=== PATIENT | male | born 1965 | race Caucasian/White ===

== ENCOUNTER 2018-01-05 06:40 | Inpatient (IN) | payer OTHER, SELFPAY ==
[2017-12-23 10:38] VITALS: BMI 33.0
[2018-01-05] VITALS (13 sets, daily range): BP systolic 114–150; BP diastolic 63–84; PULSE 55–88; RESP 10–18; TEMP 36.5–37.4; O2SAT 94–100; BMI 32.0
[2018-01-05] MEDS: LACTATED RINGERS 1,000 ML 42 ML IV ×2 (07:20→10:34)
--- NOTE | 2018-01-05 07:27 | PM.PREOP ---
Pre-operative Note Interval Note Pre-op Check: History & Physical Reviewed by Physician and Exam Performed
--- NOTE | 2018-01-05 07:34 | P.OP_ITS ---
Operative Date/Time/Diagnoses - Date of procedure: 01/05/18 Time of procedure: 10:56 Pre-op diagnosis: lumbar stenosis with radiculopathy lumbar spondylolisthesis Post-op diagnosis: same Procedure & Clinicians Procedure: L4-5 TLIF (post/post innerbody fusion) screws L4, L5 cage icbg L45 laminectomy including removal of facet cyst (intraspinal, extradural mass lesion) microscope placement of epidural catheter Same procedure as scheduled: Yes Indications: 52-year-old male with intractable radiculopathy and dynamic listhesis. He had failed conservative management requested operative intervention. Risks and benefits of surgery were discussed appropriate consents were obtained. Surgeon: Villa Escobedo Geospatial Analyst: Catrina Dorman Anesthesia Type: General Operative Notes Findings: large adherent facet cyst at L45 on the right Closure Type: primary Specimen(s): none sent Implants & Drains: NuVasive Reline MAS screws Integrity Flarehawk cage Applied: catheter Estimated Blood Loss (mL): 20 Procedure in detail: The patient was brought to the operating room and intubated on the table. A time-out was performed. They were then rolled over to the well-padded Dwayne table in the prone position. Preoperative antibiotics were given. The back was prepped and draped in the standard sterile fashion. Using fluoroscopy, a 4 cm longitudinal incision was made to the right of the midline. We used Bovie to come down to and split the lumbodorsal fascia. Using fluoroscopy and monitoring, we then percutaneously placed Jamshidi needles down the pedicles of L4 and L5 on the right side. These were changed out to guidewires and then we tapped and then placed the NuVasive MAS Reline screw shanks. We then opened up the retractors and used Bovie to clear up the posterolateral gutter as well as medially along the lamina to the spinous processes. A bur was used to decorticate the transverse processes. Using a combination of bur and Kerrison rongeurs, a laminectomy was performed from the right side. As we began clearing out through the bone, we discovered a very large densely adherent facet cyst coming off the right L4-5 facet. We had to carefully dissect this off with a curette and ball probe until we could free it up enough to remove large fragments of it with the Kerrison rongeurs. This added considerable time and effort to remove this large cyst. Once this was removed we could finally start lifting up the ligamentum and freeing up the remainder of the dura until it was exposed. We cleared over past the midline and carefully depressed the dura until we were able to decompress the opposite side. We cleared out the neural foramen. This completed the laminectomy at L4- 5. Please note that this laminectomy was separate and distinct from a standard approach for a TLIF as we had removed the facet cyst, requiring extra time and difficulty. We then began the TLIF prep. A complete facetectomy was performed on this side at L4-5. We carefully cleaned up the remainder of the foramen until we could easily retract the exiting root as well as clearing medially below the dura and expose the disc space. The disc was prepped with bipolar and then an annulotomy was performed. We performed a diskectomy using a combination of paddles, fifi, Kerrison, and curettes. We distracted the disc using a paddle and locked the retractor in an open position. We then filled the disc space with Osteocell bone graft. We then placed and expanded the Integrity Flarehawk cage under fluoroscopy and then filled this in with more bone graft. The distraction on the retractor was released to compress down. This completed the posterior interbody fusion portion of the TLIF at L4-5. We then placed the screw heads, gabriel, and locked down the set screws. The wound was copiously irrigated. A small stab incision was made over the PSIS. We used a Jamshidi needle to aspirate several mL of bone marrow from the pelvis. This was mixed with the remaining Osteocell and combined with all of the locally harvested bone graft and placed in the posterolateral gutter for the posterior fusion of the TLIF at L4-5. An epidural catheter was then placed in the spinal canal by carefully depressing the dura and advancing it 6 cm cephalad under the remaining lamina without resistance. The muscle fascia was closed. The catheter was then injected with a solution containing 4 mL of 0.5% Marcaine, 1 mg Stadol, 4 mg Duramorph, and 100 mcg of fentanyl. This was injected without resistance and the catheter was pulled. We then went to the opposite side. Again using fluoroscopy, a 3 cm incision was made and Bovie was used to come down to split the fascia. Using neural monitoring and fluoroscopy, Jaron needles were advanced down the pedicles of L4-5 on the left side. These were switched over guidewires, tapped, and screws placed. We then placed a gabriel and locked the set screws on this side. The wound was irrigated. The fascia was closed. Vancomycin powder was placed in the wounds. The superficial and skin were closed. A sterile dressing was placed. The patient was then rolled over extubated and brought to recovery room without complications. Complications: none Condition: stable Disposition: PACU Plan for aftercare: Inpatient. Up with PT.
[2018-01-05] MEDS: CEFAZOLIN 2 GM/100 ML FROZ.PIGGY IV ×2 (07:59→17:32)
--- NOTE | 2018-01-05 08:00 | DI.RAD.S_ITS ---
PROCEDURE: XR LUMBAR SPINE 2-3V INDICATIONS: 52-year-old male undergoing L4-L5 spinal surgery. TECHNIQUE: 2 intraoperative views of the lumbar spine were acquired. COMPARISON: None available. FINDINGS: Bones: Patient is status post L4-L5 discectomy with interbody fusion and bilateral posterior fixation. Hardware components appear in expected positions. Soft tissues: Overlying bowel gas pattern is normal. No suspicious soft tissue calcifications. IMPRESSION: Fluoroscopic guidance for L4-L5 interbody fusion with bilateral posterior fixation. Dictated by: Miguel Hernandez M.D. on 01/05/2018 at 11:49 Approved by: Miguel Hernandez M.D. on 01/05/2018 at 11:50
--- NOTE | 2018-01-05 08:46 | SUR.OPER ---
Prone on spine table, head in foam head support, padded chest and pelvic supports, gel pad at knees, lower legs supported by pillows; nipples, genitalia and toes free of pressure, arms secured on foam padded arm boards at <90 degrees abduction. Tape over blanket at thigh secured to table.
[2018-01-05] MEDS: SODIUM CHLORIDE 0.9% 1,000 ML, GENTAMICIN 80 MG IRR (09:00)
[2018-01-05] MEDS: VANCOMYCIN 1,000 MG VIAL 1000 MG TOP (09:00)
[2018-01-05] MEDS: THROMBIN (BOVINE) 5,000 UNIT VIAL 5000 UNIT TOP (09:00)
[2018-01-05] MEDS: BUPIVACAINE 0.5% (PF) 4 ML, MORPHINE-PF 4 MG, BUTORPHANOL 1 MG, fentaNYL 100 MCG INJ (09:09)
[2018-01-05] MEDS: HYDROMORPHONE 2 MG INJ 0.25 MG IV ×2 (11:45→11:50)
[2018-01-05] MEDS: SODIUM CHLORIDE 0.9% 1,000 ML 125 ML IV (13:11)
--- NOTE | 2018-01-05 17:03 | PT.IIE ---
Current Diagnoses Spondylolisthesis, lumbar region (01/05/18) Spinal stenosis, lumbar region with neurogenic claudication (01/05/18) Other intervertebral disc degeneration, lumbar region (01/05/18) Strain of muscle, fascia and tendon of lower back, initial encounter (01/05/18) Surgery Performed Operation Date: 01/05/18 07:45 Actual Procedures p L4-5 Laminectomy w/Instrumented Fusion & Bone Graft(TLIF) - Villa Escobedo MD Surgical History (Last Updated 12/23/17 @ 11:15 by Elise Perrin, RN) H/O right knee surgery (Acute) H/O vasectomy (Acute) History of tonsillectomy (Acute) S/P cervical spinal fusion (Acute) Medical History (Last Updated 12/23/17 @ 11:13 by Elise Perrin, WATSON) Arthritis of right hand (Acute) Bradycardia (Acute) Carpal tunnel syndrome of right wrist (Acute) Erectile dysfunction (Acute) Generalized weakness (Acute) Left arm weakness (Acute) Lumbar degenerative disc disease (Acute) Lumbar stenosis with neurogenic claudication (Acute) Mixed hyperlipidemia (Acute) Obesity (Acute) Ringing in ears (Acute) Sebaceous cyst (Acute) Spondylolisthesis of lumbar region (Acute) Tingling (Acute) Urinary frequency (Acute) Weakness of both legs (Acute) Physical Therapy Inpatient Evaluation/Re-Eval M1 PT/OT-IP Prior Functional Status Start: 01/05/18 16:46 Freq: NEEDED Status: Active Protocol: Document 01/05/18 16:46 [facility] (Rec: 01/05/18 17:03 [facility] [id number]) Medical Review Prior Functional Status Medical History Reviewed Yes Mobility and Gait Indep with ADLs & gait without AD; 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 0 Home Environment High Toilet Walk in Shower Home Equipment Surgical Instruments Inspector Employment Status Cashier Receptionist Employed Additional Social History Comment Plan home with his who works a [employer] SW doing payroll and has access to borrow equipment; has as much time off as needed. Split level home M2 PT-IP Current Condition Start: 01/05/18 16:46 Freq: NEEDED Status: Active Protocol: Document 01/05/18 16:46 [facility] (Rec: 01/05/18 17:03 [facility] [email or web address]) Physical Therapy Current Condition Current Condition Evaluation Date 01/05/18 Treatment Diagnosis L4-5 TLIF Precautions Lumbar Precautions Log Roll No Twisting Limit Bending Lifting Restriction of 10 lbs Gait Belt above Incisional Area M3 PT-IP Subjective Start: 01/05/18 16:46 Freq: NEEDED Status: Active Protocol: Document 01/05/18 16:46 [facility] (Rec: 01/05/18 17:03 [facility] [email or web address]) Subjective Physical Therapy Visit Type Type Initial Evaluation Visit Start Time 16:10 Visit Stop Time 16:45 Total Visit Minutes 35 Number of INDUSTRIAL SALES MANAGER Visits 0 Physical Therapy Visit Comments Patient Comments Agreeable to get out of bed. Plans to go home in a couple days Therapy Pain Assessment Pain When Pain Assessed During Mobility Pain Present Pain Present Pain Reported Location Lower Back Intensity 3 Scale Used Numeric (1 - 10) M4 PT-IP Mobility and Gait Start: 01/05/18 16:46 Freq: NEEDED Status: Active Protocol: Document 01/05/18 16:46 [facility] (Rec: 01/05/18 17:03 [facility] [email or web address]) PT-Bed Mobility Assessment Rolling Type of Rolling Log Rolling Level of Assist Standby Assistance Supine to Sit Supine to Sit Standby Assistance Bedrails Scooting Scooting to Edge of Bed Independent PT-Transfer Assessment Sit to and From Stand Sit to and from Stand Standby Assistance Use of Upper Extremities Equipment Transfer Assistive Device Gait Belt Front Wheeled Walker Orthotic/Prosthetic Devices or Brace: No Gait Assessment Gait Gait Assistance Required: Standby Assistance Distance (Feet) (feet) 40 Assistive Devices Assistive Device Gait Belt Front Wheeled Walker Orthotic/Prosthetic Devices or Brace: No Gait Deviations General Gait Pattern Decreased Stride Length Factors Limiting Gait Function Factors Limiting Gait Function Pain Comments Gait Comments Pt reported dizziness with gait so sat down. BP WNL though. Supine 123/72; seated 133/78; after gait 138/79 PT-Balance Assessment Sitting Balance and Reactions Static Sitting Balance Ability Normal Dynamic Sitting Balance Ability Normal Standing Balance and Reactions Static Standing Balance Ability Fair Dynamic Standing Balance Ability Fair M5 PT-IP Objective Assessments Start: 01/05/18 16:46 Freq: NEEDED Status: Active Protocol: Document 01/05/18 16:46 [facility] (Rec: 01/05/18 17:03 [facility] [id number]) Muscle Tone Muscle Tone WNL No M6 PT-IP Treatment Start: 01/05/18 16:46 Freq: NEEDED Status: Active Protocol: Document 01/05/18 16:46 [facility] (Rec: 01/05/18 17:03 [facility] [email or web address]) Physical Therapy Treatment Exercises Exercises Ankle Pumps Education Education Provided Precautions Post-Op Packet Safety M7 PT-IP Assessment and Plan Start: 01/05/18 16:46 Freq: NEEDED Status: Active Protocol: Document 01/05/18 16:46 [facility] (Rec: 01/05/18 17:03 [facility] [email or web address]) PT Summary Assessment and Plan Potential Rehabilitation Potential Excellent Status of Condition at Evaluation Evolving Summary Impairments Pain Strength Balance Gait Goals Bed Mobility Goal Independent Transfer Goal Independent Gait Goal Independent Front Wheel Walker Gait Distance 200ft Other Goals up/down 10 stairs with rail SBA Days to Meet Goals 3 Frequency of Treatment Frequency Of Treatment Twice a Day Treatment Plan Physical Therapy Treatment Plan Bed Mobility Training Transfer Training Gait Training Therapeutic Exercise Balance Retraining Post Op Education Hot or Cold Pack Other Recommendations and Next Treatment Advance gait & review Focus precautions; stairs Recommendations To Nursing Amount of Assist Needed Standby Assistance Discharge Recommendations PT Discharge Recommendations Home with Assistance Equipment Needed for Home Before may require FWW Discharge Provider Visit Care Team Role Provider Type Villa Escobedo MD Admit Provider Physician Attending Provider Specialty: Orthopedic Surgery
[2018-01-05] MEDS: MELOXICAM 7.5 MG TABLET 15 MG PO (17:15)
[2018-01-05] MEDS: SENNOSIDES 8.6 MG TABLET 17.2 MG PO (21:20)
[2018-01-05] MEDS: DOCUSATE 100 MG CAPSULE PO (21:20)
[2018-01-05] MEDS: GABAPENTIN 300 MG CAPSULE PO (21:20)
[2018-01-05] MEDS: HYDROCODONE/ACET 5/325 TABLET 1 TAB PO (21:21)
[2018-01-05] MEDS: LOVASTATIN 20 MG TABLET PO (21:23)
[2018-01-06] MEDS: CEFAZOLIN 2 GM/100 ML FROZ.PIGGY IV (00:12)
[2018-01-06 00:19] VITALS: BP 105/55; PULSE 67; RESP 16; TEMP 36.9; O2SAT 98
[2018-01-06 05:27] VITALS: BP 102/64; PULSE 56; RESP 16; TEMP 36.6; O2SAT 98
[2018-01-06 06:04] VITALS: BP 102/64; PULSE 56; TEMP 36.6
[2018-01-06 06:09] LABS: Hematocrit 39.6 % (41-53); Hemoglobin 13.7 g/dL (13.5-17.5)
[2018-01-06] MEDS: MELOXICAM 7.5 MG TABLET 15 MG PO (08:16)
[2018-01-06] MEDS: DOCUSATE 100 MG CAPSULE PO (08:17)
--- NOTE | 2018-01-06 08:17 | P.PN_ITS ---
Subjective Date Patient Seen: 01/06/18 Time Patient Seen: 08:15 Interval history: He is doing very well. Minimal pain. Has not taken any pain medication. Has been walking in the room and down the hallway Exam Vital Signs (past 8 hours): Vital Signs - 8 hr 3 01/06/18 00:19 01/06/18 05:27 01/06/18 06:04 Temperature 98.4 F 97.9 F 97.9 F Pulse Rate 67 56 L 56 L Respiratory Rate 16 16 Blood Pressure 105/55 L 102/64 102/64 Pulse Oximetry 98 98 Pulse Oximetry 98 Oxygen Delivery Method Room Air Oxygen Flow Rate 96 Back/Spine/Pelvis Other: Dressing with mild serosanguineous drainage. 5/5 motor both lower extremities Objective Labs Result Diagrams: 01/06/18 05:38 Labs: Laboratory Results - last 24 hr 01/06/18 05:38 Hgb 13.7 Hct 39.6 L Assessment & Plan Post-op Postoperative Procedures Operation Date: 01/05/18 07:45 Actual Procedures Side Surgeon p L4-5 Laminectomy w/Instrumented Fusion & Bone Graft(TLIF) Villa Escobedo MD he is doing great. He may still be getting some good relief with the epidural which should wear off sometime this morning. He will mobilize with physical therapy. As long as he is still doing well this afternoon he could possibly discharge home. If not, tomorrow. Time Spent With Patient less than 15 minutes Quality VTE Deep Vein Thrombosis/Pulmonary Embolism Present on Admission: No
[2018-01-06] MEDS: HYDROCODONE/ACET 5/325 TABLET 1 TAB PO (08:20)
[2018-01-06 08:22] VITALS: BP 115/64; PULSE 62; RESP 16; TEMP 36.7; O2SAT 99
--- NOTE | 2018-01-06 10:21 | OT.IP.EVAL ---
Current Diagnoses Spondylolisthesis, lumbar region (01/05/18) Spinal stenosis, lumbar region with neurogenic claudication (01/05/18) Other intervertebral disc degeneration, lumbar region (01/05/18) Strain of muscle, fascia and tendon of lower back, initial encounter (01/05/18) Surgery Performed Operation Date: 01/05/18 07:45 Actual Procedures p L4-5 Laminectomy w/Instrumented Fusion & Bone Graft(TLIF) - Villa Escobedo MD Past Medical History (Last Updated 12/23/17 @ 11:13 by Elise Perrin, RN) Arthritis of right hand (Acute) Bradycardia (Acute) Carpal tunnel syndrome of right wrist (Acute) Erectile dysfunction (Acute) Generalized weakness (Acute) Left arm weakness (Acute) Lumbar degenerative disc disease (Acute) Lumbar stenosis with neurogenic claudication (Acute) Mixed hyperlipidemia (Acute) Obesity (Acute) Ringing in ears (Acute) Sebaceous cyst (Acute) Spondylolisthesis of lumbar region (Acute) Tingling (Acute) Urinary frequency (Acute) Weakness of both legs (Acute) Surgical History (Last Updated 12/23/17 @ 11:15 by Elise Perrin RN) H/O right knee surgery (Acute) H/O vasectomy (Acute) History of tonsillectomy (Acute) S/P cervical spinal fusion (Acute) Occupational Therapy Inpatient Evaluation/Re-Eval M1 PT/OT-IP Prior Functional Status Start: 01/05/18 16:46 Freq: NEEDED Status: Active Protocol: Document 01/06/18 08:20 [facility] (Rec: 01/06/18 10:19 [facility] [id number]) Medical Review Prior Functional Status Medical History Reviewed Yes Mobility and Gait Indep with ADLs & gait without AD; 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 Split level home M2 OT-IP Current Condition Start: 01/06/18 10:10 Freq: Status: Active Protocol: Document 01/06/18 08:20 [facility] (Rec: 01/06/18 10:19 [facility] [email or web address]) Occupational Therapy Current Condition Current Condition Evaluation Date 01/06/18 Treatment Diagnosis L4-5 Laminectomy Post Operative Precautions Lumbar Precautions Log Roll No Twisting Limit Bending Lifting Restriction of 10 lbs Gait Belt above Incisional Area M3 OT- IP Subjective and Pain Start: 01/06/18 10:10 Freq: Status: Active Protocol: Document 01/06/18 08:20 [facility] (Rec: 01/06/18 10:19 [facility] [email or web address]) OT Pain Assessment Pain When Pain Assessed During Mobility Pain Present Pain Present Denied Pain M4 OT- IP ADL's Start: 01/06/18 10:10 Freq: Status: Active Protocol: Document 01/06/18 08:20 [facility] (Rec: 01/06/18 10:19 [facility] [email or web address]) OT ADL-Grooming General Evaluation Grooming Ability Independent OT ADL-Dressing General Eval Upper Body Dressing Ability Independent Lower Body Dressing Ability Minimal Assistance Areas Needing Assistance Retrieving/Set-up of Clothing Socks Assistive Devices Dressing Assistive Devices Long Handled Shoe Horn Manager Music Sock Aid Comments OT Dressing Comments Educated pt on use of sock aid and maintenance and repair worker for dressing needs. M6 OT- IP Functional Cognition Start: 01/06/18 10:10 Freq: Status: Active Protocol: Document 01/06/18 08:20 [facility] (Rec: 01/06/18 10:19 [facility] [email or web address]) Cognitive Factors Limiting Selfcare Function Cognitive Ability Level of Alertness Alert Patient Orientation Name Age Birthday Month Date Year Day of Week Place Situation Attention Span Ability Capable of Focused Attention Capable of Sustained Attention Ability to Follow Commands Able to Follow One Step Commands Able to Follow Multi-Step Commands Safety Awareness Underestimates Need for Assistance Problem Solving Ability No deficits Noted Cognitive Comments Cognitive Assessment Comments VC to slow down and be mindful of back precautionsat all times. OT- Vision and Hearing OT- Hearing Assessment OT- Hearing Assessment WFL M7 OT- IP Mobility and Balance Start: 01/06/18 10:10 Freq: Status: Active Protocol: Document 01/06/18 08:20 [facility] (Rec: 01/06/18 10:19 [facility] [email or web address]) OT- Bed Mobility Assessment Rolling Type of Rolling Roll to Left Supine to Sit Supine to Sit Assist Independent Sit to Supine Sit to Supine Assist Independent Scooting Scooting to Edge of Bed Independent Scooting Up and Down in Bed Independent OT-Transfer Assessment Sit to and From Stand Sit to and from Stand Standby Assistance Transfers Transfer Ability Standby Assistance OT- Gait Assessment Gait Gait Assistance Required: Standby Assistance Comments Gait Ability Comments Able to walk down the hallway with distant supervision and independent to do steps with use of wall for balance like at home. Educated pt to have with him for the steps. OT- Balance Assessment Sitting Balance and Reactions Static Sitting Balance Ability Normal Dynamic Sitting Balance Ability Normal Standing Balance and Reactions Static Standing Balance Ability Normal Dynamic Standing Balance Ability Good M9 OT- IP Assessment and Plan Start: 01/06/18 10:10 Freq: Status: Active Protocol: Document 01/06/18 08:20 [facility] (Rec: 01/06/18 10:19 [facility] [email or web address]) OT Summary Assessment and Plan Potential Rehabilitation Potential Excellent Analytic Complexity at Evaluation Low Summary OT Impairments Strength Progress Towards Goals Safe For Discharge Goals Met Assessment Summary Pt doing well and has met all goals for OT and ready to go home. Goals Patient/Caregiver Education Goal Caregiver Independent Assisting Patient Days to Meet Goals 1 Frequency of Treatment Frequency Of Treatment Once a Day Treatment Plan OT Treatment Plan Patient/Family Education Discharge Planning Discharge Recommendations OT Discharge Recommendations Home with Assistance
--- NOTE | 2018-01-06 12:09 | PC.NURSE ---
Patient AOx4. Pain well controlled with oral medications. Voiding well. Taking PO well. IV catheter removed. Tip intact. Patient works with and is cleared by PT. Discharge teaching reviewed with patient and spouse. No questions or concerns at this time. Coversite placed. Patient taken via wheelchair by staff to car where spouse awaits.
--- NOTE | 2018-01-06 15:27 | CM.DANOTE ---
DCP: assessment: Case was received this morning and discussed in Interdisc team rounds. Therapy rep noted PT did see pt yesterday and ok'd him for the home setting. OT was to see pt today and do some caregiver training with . Documentation revealed that pt is a 52 year old male who admitted yesterday for a planned spinal surgery. Surgeon: Dr. Escobedo Payer: Shankar Woody. DCP template started with info that was currently available. Went to room to check in with pt at 1230. He had already left for home after working with OT per ortho team ok. No concerns were identified by the care team members.
== END 2018-01-06 11:45 | disposition home or self-care (01) | DRG 455 ==
PROVIDERS: Admitting Provider Orthopaedic Surgery; Visit Provider Orthopaedic Surgery
PROC: 0SG00AJ Fusion of Lumbar Vertebral Joint with Interbody Fusion Device, Posterior Approach, Anterior Column, Open Approach (ICD-10-PCS; principal; 2018-01-05 07:45)
DX: M48.062 Spinal stenosis, lumbar region with neurogenic claudication (principal); M43.16 Spondylolisthesis, lumbar region; M51.36 Other intervertebral disc degeneration, lumbar region; M85.48 Solitary bone cyst, other site
CPT/HCPCS: 36415; 72100; 76001; 85014; 85018; 97162; 97165; 97535; C1776; C1788; J0595; J0690; J1170; J2250; J2274; J3010